=== PATIENT | female | born 1985 | race Caucasian/White ===

== ENCOUNTER → 2019-04-08 | Outpatient (CLI) | payer BC ==
[~2019-04-08] MED LIST: GADOBENATE DIMEGLUMINE 1 ML IV ONE; SODIUM CHLORIDE 0.9% 100 ML 100 ML ONE
[2019-04-08 11:02] LABS: BLOOD UREA NITROGEN 11 mg/dL (7-26); BUN/CREATININE RATIO 15 (6-25); CREATININE, SERUM 0.72 mg/dL (0.57-1.11); EST GLOMERULAR FILTRATION RATE > 60 ML/MIN (60-)
--- NOTE | 2019-04-09 12:05 | Diagnostic Imaging Report ---
CARDIOVASCULAR MRI & MRA OF THE ABDOMEN Comparison: None Indication: ^UNCONTROLLED HYPERTENSION Technique: [facility] [place] 1.5 T MRI scanner. * T2 Haste imaging for anatomic definition. * Contrast-enhanced volume sets acquired for three-dimensional MRA reconstructions after injection of gadolinium-chelate (Multihance, 20 cc). * For more optimal morphologic evaluation, off-line advanced post-processing of the 3-D data was performed (using multiplanar, [id number], and/or volume-rendered reconstructions). FINDINGS: ABDOMINAL AORTA: The abdominal aorta is normal in course, caliber and contour. There is no evidence for acute aortic pathology. The celiac artery and SMA are widely patent. Renal arteries: bilateral single renal arteries are normal in caliber and widely patent. No atherosclerotic changes or wall thickening identified. No wall irregularity to suggest fibromuscular dysplasia. The abdominal aorta measures: 1.7 cm at the supra mesenteric segment 1.6 cm at the mesenteric segment 1.5 cm at the renal segment 1.7 cm at the mid infrarenal segment 1.7 cm at the aortic bifurcation. LOWER CHEST: Unremarkable. ABDOMEN: The liver, gallbladder, spleen, adrenal glands, and bilateral kidneys appear unremarkable. BONES AND SOFT TISSUES: Unremarkable on limited evaluation. IMPRESSION: Normal abdominal aorta. Patent single bilateral renal arteries without aneurysm, stenosis, or wall irregularity to suggest fibromuscular dysplasia. Normal appearance of the kidneys. Signed by: Dr. Viktoria Navarro M.D. on 04/09/2019 12:02 PM
== END ==
LOC: MRI 10:08
PROVIDERS: ATTEND Internal Medicine
DX: R00.2 Palpitations (principal); I10 Essential (primary) hypertension; R07.2 Precordial pain
CPT/HCPCS: 36415; 74185; 82565; 84520; A9577